=== PATIENT | female | born 1940 | race Caucasian/White ===

== ENCOUNTER → 2017-04-17 | Outpatient (CLI) | payer MEDICARE, BC ==
[~2017-04-17] MED LIST: ACET325T14 PO; ALEN70TA5 PO; ATEN50TA41 PO; CALCIUM PO; CHOL10002 PO; MULT-516 PO; OMEG1CAP23 PO; OMEP-110 PO; OMEP40CA6 PO; POTA20TA91 PO; ROSU5TAB PO; SPIR25TA3 PO; TRAM50TA2 PO; TYLENOL PM PO; [UNRECOGNIZED DRUG - OTHER] PO
== END | disposition home or self-care (01) ==
LOC: STAR 11:55
PROVIDERS: ATTEND Surgery
DX: Z01.818 Encounter for other preprocedural examination (principal); K43.9 Ventral hernia without obstruction or gangrene
CPT/HCPCS: 93005

== ENCOUNTER 2017-05-01 07:29 | Day surgery (SDC) | payer MEDICARE, BC ==
[~2017-05-01] VITALS: Ht 167.6 cm; Wt 82.1 kg
[2017-05-01] MEDS ORDERED: PHENYLEPHRINE 10 MG/ML ONE (07:37)
[2017-05-01] MEDS ORDERED: KETOROLAC 30 MG/1 ML ONE (07:37)
[2017-05-01] MEDS ORDERED: GLYCOPYRROLATE 0.2MG/1ML, 5ML ONE (07:37)
[2017-05-01] MEDS ORDERED: ONDANSETRON 2MG/ML, 2ML ONE (07:37)
[2017-05-01] MEDS ORDERED: CEFOTETAN 1 GM ONE (07:37)
[2017-05-01] MEDS ORDERED: PROPOFOL 10 MG/ML, 20ML ONE (07:37)
[2017-05-01] MEDS ORDERED: ROCURONIUM 10 MG/ML ONE (07:37)
[2017-05-01 07:51] VITALS: BP 140/86
[2017-05-01] MEDS ORDERED: LACTATED RINGERS 1,000 ML IV SCH (07:54)
[2017-05-01] MEDS ORDERED: LIDOCAINE 1%, 2ML ONE (07:57)
[2017-05-01] MEDS ORDERED: LIDOCAINE 1%, 2ML SQ PRN (08:00)
[2017-05-01] MEDS ORDERED: EPINEPHRINE 1 MG/ML, 1ML ONE (08:30)
[2017-05-01] MEDS ORDERED: BUPIVACAINE/PF 0.5% ONE (08:30)
[2017-05-01] MEDS ORDERED: FENTANYL PF 100 MCG/2ML ONE ×2 (08:33)
[2017-05-01] MEDS ORDERED: MIDAZOLAM 1 MG/ML, 2ML ONE ×2 (08:33)
[2017-05-01] MEDS ORDERED: KETAMINE 10 MG/ML, 20ML ONE (09:27)
[2017-05-01] MEDS ORDERED: ONDANSETRON 2MG/ML, 2ML IVPush PRN (09:30)
[2017-05-01] MEDS ORDERED: LABETALOL 5MG/ML, 20ML IV PRN (09:30)
[2017-05-01] MEDS ORDERED: FENTANYL PF 100 MCG/2ML IV PRN (09:30)
[2017-05-01] MEDS ORDERED: MEPERIDINE/PF 25MG/0.5ML IVPush PRN (09:30)
[2017-05-01] MEDS ORDERED: OXYcodone 5 MG/5 ML ORAL.SOL UDC PO PRN (09:30)
[2017-05-01] MEDS ORDERED: HYDROmorphone 1 MG/ML, 1ML IV PRN (09:30)
[2017-05-01] MEDS ORDERED: ACETAMINOPHEN 325 MG TABLET PO PRN (09:30)
[2017-05-01] MEDS ORDERED: hydrALAzine 20 MG/ML, 1ML IV PRN (09:30)
[2017-05-01] MEDS ORDERED: PROMETHAZINE 25 MG/ML, 1ML IV PRN (09:30)
[2017-05-01] MEDS ORDERED: BUPIVACAINE/PF-EPI 0.5% 1:200K IM ONE (09:41)
[2017-05-01] MEDS ORDERED: ACETAMINOPHEN 650 MG/20.3 ML UDC ONE (10:48)
[2017-05-01] MEDS ORDERED: OXYcodone 5 MG/5 ML ORAL.SOL UDC ONE (10:49)
[2017-05-01] MEDS ORDERED: hydrALAzine 20 MG/ML, 1ML ONE (11:08)
== END 2017-05-01 15:40 ==
LOC: OUT 07:29
PROVIDERS: ATTEND Surgery
DX: K43.0 Incisional hernia with obstruction, without gangrene (principal); Z88.1 Allergy status to other antibiotic agents; I10 Essential (primary) hypertension
CPT/HCPCS: 49655; C1781; J0171; J0360; J1885; J2250; J2370; J2405; J2704; J3010; J3490; J7120; S0074

== ENCOUNTER → 2018-01-07 | Outpatient (CLI) | payer MEDICARE, BC | END | disposition home or self-care (01) | LOC: CFH 08:22 | PROVIDERS: ATTEND Family Medicine | DX: E04.1 Nontoxic single thyroid nodule (principal) | CPT/HCPCS: 76536 ==

== ENCOUNTER → 2018-02-10 | Outpatient (CLI) | payer MEDICARE, BC | END | disposition home or self-care (01) | LOC: CFH 14:35 → EDSTATUS 15:00 | PROVIDERS: ATTEND Family Medicine | DX: I10 Essential (primary) hypertension (principal); E78.5 Hyperlipidemia, unspecified; R01.1 Cardiac murmur, unspecified | CPT/HCPCS: 93306 ==

== ENCOUNTER 2019-04-20 08:00 | Emergency (ER) | payer MEDICARE, BC ==
[~2019-04-20] VITALS: Ht 167.6 cm; Wt 77.0 kg
[~2019-04-20 08:00] MED LIST changes: -ALEN70TA5 PO; +ALEN70TA6 PO; -SPIR25TA3 PO; +SPIR25TA5 PO
--- NOTE | 2019-04-20 08:20 | NUR ---
SARAH. REPORT RECEIVED FROM EMS. PT C/O SUDDEN ONSET OF DZY IN THIS AM. NO ANY OTHER SX. PT'S AOX4. RESPS EVEN AND UNLABORED. VSS. ALL MONITORS IN PLACE. CALL LIGHT WITHIN REACH. 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 MEDICAL STUDENT AT BEDSIDE TO EVALUATE AT THIS TIME.
--- NOTE | 2019-04-20 08:57 | NUR ---
REPORT GIVEN TO TYLER PENG.
--- NOTE | 2019-04-20 09:00 | NUR ---
REPORT RECEIVED FROM GINETTE CORTES. 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 ALL MONITORS IN PLACE. CALL LIGHT IN REACH. JOSE ENRIQUE GUZMAN AT BEDSIDE AT THIS TIME.
[2019-04-20 09:23] LABS: BASOPHILS # (AUTO) 0.03 x10^3/uL (0-0.1); BASOPHILS % (AUTO) 0 % (0-1); EOSINOPHILS # (AUTO) 0.05 x10^3/uL (0-0.4); EOSINOPHILS % (AUTO) 0 % (1-7); LYMPHOCYTES # (AUTO) 1.41 x10^3/uL (1-3.4); LYMPHOCYTES % (AUTO) 13 % (22-44); MD NO; MEAN CORPUSCULAR HEMOGLOBIN 30.3 pg (27.0-34.8); MEAN CORPUSCULAR HGB CONC 32.8 g/dL (32.4-35.8); MEAN CORPUSCULAR VOLUME 92.5 fL (80-100); MEAN PLATELET VOLUME 8.3 fL (7.4-10.4); MONOCYTES % (AUTO) 5 % (2-9); NEUTROPHILS # (AUTO) 9.18 x10^3/uL (1.8-6.8); NEUTROPHILS % (AUTO) 82 % (42-75); PLATELET COUNT 192 x10^3/uL (130-400); RED BLOOD COUNT 4.79 x10^6/uL (3.82-5.3); RED CELL DISTRIBUTION WIDTH 17.1 % (9.6-15.2)
[2019-04-20] MEDS ORDERED: MECLIZINE CHEWABLE 25 MG TAB PO ONE (09:30)
[2019-04-20 09:35] LABS: ALBUMIN 4.4 g/dL (3.4-5.0); ANION GAP 4 mmol/L (5-15); CALCIUM 10.6 mg/dL (8.5-10.1); CHLORIDE 102 mmol/L (98-107); CREATININE 0.77 mg/dL (0.55-1.02)
[2019-04-20 09:39] LABS: TROPONIN I < 0.015 ng/mL (0.000-0.045)
--- NOTE | 2019-04-20 10:00 | NUR ---
late entry d/t patient care: pt ambulated to bathroom, gait steady. pt urinated but contaminated sample with stool, EDMD notified. Urine straight cath ordered. pt straight cath'd by this RN, sterile technique maintained. pt tolerated well. pt a&o, resps even and unlabored. urine walked to lab.
[2019-04-20 10:31] LABS: MICROSCOPIC NOT IND
[2019-04-20 10:33] LABS: CULTURE INDICATED? NO
--- NOTE | 2019-04-20 11:00 | NUR ---
VERBAL ORDER GIVEN BY JOSE ENRIQUE GUZMAN TO HOLD MECLIZINE PT IS DENYING DIZZINESS AT THIS TIME.
[2019-04-20 11:16] VITALS: BP 121/64
--- NOTE | 2019-04-20 11:21 | NUR ---
orthostatic vs completed. pt a&o, resps even and unlabored. pt denies pain. orthostatic vs reviewed by martin gardner. awaiting further orders at this time.
--- NOTE | 2019-04-20 11:58 | NUR ---
Patient/Caregiver given discharge instructions and they have confirmed that they understand the instructions. Patient ambulatory with steady gait.
[2019-04-20] MEDS ORDERED: PROPRANOLOL 10 MG TABLET PO ONE (12:30)
== END 2019-04-20 12:22 | disposition home or self-care (01) ==
LOC: ED 09:59
DX: R42 Dizziness and giddiness (principal); R51 Headache
CPT/HCPCS: 36415; 70450; 71045; 80048; 81003; 82040; 84484; 85025; 93005; 99284